=== PATIENT | female | born 2000 | race Caucasian/White ===

== ENCOUNTER 2019-03-12 21:23 | Emergency (ER) | payer SELFPAY ==
[~2019-03-12] VITALS: Ht 165.1 cm; Wt 81.8 kg
[2019-03-12 23:10] VITALS: Ht 165.1 cm; Wt 81.8 kg
[2019-03-13 00:42] VITALS: BP 129/75
== END 2019-03-13 00:42 | disposition home or self-care (01) ==
LOC: ED 21:23
DX: M20.011 Mallet finger of right finger(s) (principal)